=== PATIENT | male | born 1945 ===

== ENCOUNTER 2021-01-03 10:45 | Inpatient (IN) | payer OTHER ==
[~2021-01-03] VITALS: Ht 180.3 cm; Wt 78.0 kg
[~2021-01-03 10:45] MED LIST: AVAPRO75 MG; [UNRECOGNIZED DRUG - OTHER]
[2021-01-03] MEDS ORDERED: TAMS0.4C PO (14:32)
[2021-01-03] MEDS ORDERED: PROSCAR5 MG PO (14:33)
[2021-01-09] MEDS ORDERED: MIDODRINE HCL10 MG (08:39)
[2021-01-09] MEDS ORDERED: DICLOFENAC POTA50 MG (08:39)
[2021-01-09] MEDS ORDERED: ATORVASTATIN CA40 MG (08:39)
[2021-01-09] MEDS ORDERED: GABAPENTIN800 M1 (08:39)
[2021-01-09] MEDS ORDERED: OXYBUTYNIN CHLO10 MG (08:39)
[2021-01-09] MEDS ORDERED: OMEPRAZOLE20 MG (08:40)
[2021-01-09] MEDS ORDERED: METOPROLOL SUCC50 MG (08:40)
== END 2021-01-11 08:37 | disposition home or self-care (01) | DRG 714 ==
LOC: SURH 01-09 05:25 → O/R 01-09 05:25 → SURH 01-09 07:00
PROVIDERS: ADMIT Urology; ATTEND Urology
PROC: 0VB08ZX Excision of Prostate, Via Natural or Artificial Opening Endoscopic, Diagnostic (ICD-10-PCS; 2021-01-09)
PROC: 0VT08ZZ Resection of Prostate, Via Natural or Artificial Opening Endoscopic (ICD-10-PCS; principal; 2021-01-09 07:00)
DX: N40.0 Benign prostatic hyperplasia without lower urinary tract symptoms (principal)